=== PATIENT | female | born 1995 | race Caucasian/White ===

== ENCOUNTER 2016-10-30 06:53 | Day surgery (SDC) | payer OTHER ==
--- NOTE | 2016-10-27 23:05 | PREOPHP ---
DATE OF ADMISSION: 10/30/2016 HISTORY OF PRESENT ILLNESS: This is a 21-year-old female, 0, para 0. The patient had a his tory of being born at 32 weeks with a labial fusion that was treated with estrogen cream. Her menar severo was early around age 15 with regular periods. The patient had been having pain. She was told t hat she had a partially closed vagina. She also has to wear a pad with her periods with itching con stantly, burning in urination as well. PAST MEDICAL HISTORY: She has been healthy. ALLERGIES: SHE HAS NO ALLERGIES. MEDICATIONS: She is on no medication. FAMILY HISTORY: Hypertension. REVIEW OF SYSTEMS: The patient had an evaluation with an ultrasound that revealed that the uterus w as normal. The myometrium was normal. The endometrium was normal. Adnexa were also normal. The e xamination revealed that she had a partially imperforated hymen for which a hymenectomy is going to be performed. PHYSICAL EXAMINATION: VITAL SIGNS: Stable with a blood pressure of 90/60, pulse is 80. She is afebrile. She weighs 189. She is 5 feet 6 inches. HEAD AND NECK: Normal. BREASTS: Soft, nontender. No masses. CHEST: Clear. HEART: Normal sinus rhythm. LUNGS: Clear. ABDOMEN: Soft, nontender. No masses. GENITALIA: With a partially imperforated hymen. Uterus unable to palpate due to it. RECTAL AND EX TREMITIES: Normal. DIAGNOSIS: Partial imperforated hymen. PLAN: She is undergoing a hymenectomy. She has been advised of the possible risks and possible com plications of the procedure with her alternatives and options. Written information was provided. S he had no more questions and agreed to go ahead with the procedure with full understanding and no mo re questions. Dictated By: JOANNA HUA/NTS Conf#: [id number] DID#: [id number]
[~2016-10-30] VITALS: Ht 165.1 cm; Wt 88.3 kg
[2016-10-30] VITALS (12 sets, daily range): BP systolic 111–136; BP diastolic 60–84; PULSE 86–102; RESP 16–29; Ht 165.1 cm; Wt 88.3 kg
--- NOTE | 2016-10-30 07:45 | HPN ---
Date/Time of Note Date/Time of Note DATE: 10/30/16 TIME: 07:45 Interval H&P Admission Note Pt. seen H&P reviewed: No system changes JOANNA COREAS MD Oct 30, 2016 07:45
[2016-10-30] MEDS ORDERED: CEFAZOLIN 2 GM/50 ML (PMX) 50 ML IVPB SCH (09:30)
[2016-10-30] MEDS ORDERED: DEXTROSE 5%-LR 1,000 ML IV SCH (09:30)
[2016-10-30] MEDS ORDERED: FENTAnyl 50 MCG/ML VIAL ONE (09:33)
[2016-10-30] MEDS ORDERED: MIDAZOLAM 1 MG/ML 2 ML INJ ONE (09:33)
[2016-10-30] MEDS ORDERED: LIDOCAINE 2% (SDV) 5 ML INJ ONE (10:23)
[2016-10-30] MEDS ORDERED: CEFAZOLIN 1 GM INJ ONE (10:23)
[2016-10-30] MEDS ORDERED: PROPOFOL 20 ML ONE (10:23)
[2016-10-30] MEDS ORDERED: ONDANSETRON 4 MG INJ ONE (10:24)
[2016-10-30] MEDS ORDERED: HYDROmorphONE (0.2 MG/ML) 10ML SYG IV PRN ×2 (10:30)
[2016-10-30] MEDS ORDERED: MEPERIDINE 25 MG INJ IV PRN (10:30)
[2016-10-30] MEDS ORDERED: DIPHENHYDRAMINE 50 MG INJ IV PRN (10:30)
[2016-10-30] MEDS ORDERED: ONDANSETRON 4 MG INJ IV PRN ×2 (10:30→11:00)
--- NOTE | 2016-10-30 10:32 | PD.PPDC ---
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
--- NOTE | 2016-10-30 10:35 | OPR ---
Date/Time of Note Date/Time of Note DATE: 10/30/16 TIME: 10:34 Operative Report Procedure Date: Oct 30, 2016 Preoperative Diagnosis imperforated hymen Postoperative Diagnosis same Operation Performed hymenectomy Surgeon: JOANNA COREAS MD Anesthesia: general Anesthesiologist: WILLA GONZALES MD Estimated Blood Loss: minimal Specimens hymen Pt Condition Post Procedure: stable Disposition: PACU JOANNA COREAS MD Oct 30, 2016 10:35
[2016-10-30] MEDS: FENTAnyl 50 MCG/ML VIAL IV PRN ×2 (10:55→11:02)
--- NOTE | 2016-10-30 11:25 | OPR ---
DATE OF OPERATION: 10/30/2016 PREOPERATIVE DIAGNOSIS: Imperforated hymen. POSTOPERATIVE DIAGNOSIS: Imperforated hymen PROCEDURE PERFORMED: Hymenectomy. SURGEON: Joanna Velasquez MD ANESTHESIOLOGIST: Rodger López MD ANESTHESIA: General. DESCRIPTION OF PROCEDURE: The patient was given general anesthesia, placed in the supine lithotomy position. The perineal and vaginal area were prepped and draped. A probe was placed in the area of the hymen, there was a very small slit on the hymen, that was covering the whole area with almost n o perforation. The hymenectomy was done with a knife and cautery and a 5-0 Vicryl was used to go ar ound the hymen for hemostasis in a circular fashion. A catheter was placed in the bladder for intac tness of the urethral area. The procedure was finished by removing all the instruments. There was no active bleeding. A bivalve speculum was placed. The cervix appears to be normal. The procedure was finished by removing all the instruments. The patient tolerated the procedure well and left th e OR awake and stable. Sponge counts, instrument counts, needle counts were correct. Dictated By: JOANNA HUA/RANDAL Conf#: [id number] DID#: [id number]
== END 2016-10-30 11:56 | disposition home or self-care (01) ==
LOC: SDS 06:53
PROVIDERS: ATTEND Obstetrics & Gynecology
DX: Q52.3 Imperforate hymen (principal)
CPT/HCPCS: 56700; 88305; J0690; J2250; J2405; J3010; J7121; Z7512; Z7610